=== PATIENT | female | born 1950 | race Caucasian/White ===

== ENCOUNTER 2017-08-12 07:27 | Day surgery (SDC) | payer OTHER ==
[~2017-08-12] VITALS: Ht 167.6 cm; Wt 137.3 kg
[2017-08-12] MEDS ORDERED: METOPROLOL TARTRATE 50 MG TABLET ONE (08:17)
[2017-08-12] MEDS ORDERED: 0.9% SODIUM CHLORIDE 10 ML SYRINGE IVP PRN (08:30)
[2017-08-12] MEDS ORDERED: METOPROLOL TARTRATE 50 MG TABLET PO PRN (08:30)
[2017-08-12 08:34] LABS: ANION GAP 7 mmol/L (8-16); CALCIUM, TOTAL 8.8 mg/dL (8.8-10.5); CARBON DIOXIDE 25 mmol/L (22-29); CHLORIDE 108 mmol/L (98-107); CREATININE 0.63 mg/dL (0.60-1.30); GLOMERULAR FILTR. RATE CALC > 60 mL/min (>60); GLUCOSE,RANDOM 92 mg/dL (70-110); POTASSIUM 4.2 mmol/L (3.5-5.1); SODIUM SERUM 140 mmol/L (136-145); UREA NITROGEN, BLOOD 18 mg/dL (7-18)
[2017-08-12] MEDS ORDERED: METO-558 PO (09:05)
[2017-08-12] MEDS ORDERED: OMEP20 PO (09:05)
[2017-08-12] MEDS ORDERED: PRAV20TA4 PO (09:05)
[2017-08-12] MEDS ORDERED: ASPI81 PO (09:05)
[2017-08-12] MEDS ORDERED: NITROGLYCERIN 400 MCG/SUBLINGUAL SPRAY 4.9 GM BOTTLE SL ONE (10:12)
[2017-08-12] MEDS ORDERED: SODIUM CHLORIDE 0.9% 100 ML ONE (10:13)
[2017-08-12] MEDS ORDERED: IOVERSOL 350 MG/ML 150 ML VIAL ONE (10:13)
== END 2017-08-12 11:20 | disposition home or self-care (01) ==
LOC: SURGERY 07:27 → EDSTATUS 10:00 → SURGERY 11:20
PROVIDERS: ATTEND Internal Medicine Cardiovascular Disease
DX: I25.119 Atherosclerotic heart disease of native coronary artery with unspecified angina pectoris (principal); K29.70 Gastritis, unspecified, without bleeding; M54.9 Dorsalgia, unspecified; Z72.89 Other problems related to lifestyle; Z90.710 Acquired absence of both cervix and uterus
CPT/HCPCS: 36415; 75574; 80048; 93005; J7050; Q9967